=== PATIENT | female | born 1945 | race Caucasian/White ===

== ENCOUNTER 2021-03-24 20:30 | Inpatient (IN) | payer MEDICARE, BC ==
[2021-03-24] MEDS ORDERED: Acetaminophen 325 MG Tab PO ONE ×2 (20:52→21:01)
[2021-03-24 21:05] LABS: CHLORIDE,CL 101 mEq/L (98-106); SODIUM,NA 139 mEq/L (136-145)
--- NOTE | 2021-03-24 21:12 | EDM.PDOC ---
ED HPI GENERAL MEDICAL PROBLEM - General Chief Complaint: General Stated Complaint: COVID symtoms Time Seen by Provider: 03/24/21 20:45 Source of Information: Reports: Patient History Limitations: Reports: No Limitations, Respiratory Distress - History of Present Illness INITIAL COMMENTS - FREE TEXT/NARRATIVE: Veronica is a 75 yo female who presents to the ED via private vehicle with concerns of COVID 19. She states she became symptomatic with symptoms 9 days ago. States at onset she had cold like symptoms. Roughly three days ago symptoms progressively worsened. States she has been drinking tea but hasn't been able to eat anything for the last 24 hours. States she does have diarrhea and abdominal pain as well. States the cough is getting worse but she just thought she would get better. 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 She states she has been running a fever as well. Has been taking ibuprofen for the fever. Abdomen Pain Score (Numeric/FACES): 9 - Related Data Allergies Allergy/AdvReac Type Severity Reaction Status Date / Time No Known Allergies Allergy Verified 03/24/21 20:52 Home Meds: Home Meds Simvastatin 40 mg PO BEDTIME 03/24/21 [History] lisinopriL [Lisinopril] 10 mg PO BEDTIME 03/24/21 [History] Past Medical History Cardiovascular History: Reports: High Cholesterol, Hypertension Respiratory History: Reports: Other (See Below) Other Respiratory History: "ferrer's lung" Endocrine/Metabolic History: Reports: Other (See Below) Other Endocrine/Metabolic History: "borderline diabetes" - Past Surgical History HEENT Surgical History: Reports: Tonsillectomy GI Surgical History: Reports: Appendectomy, Cholecystectomy Female Surgical History: Reports: Section Social & Family History - Tobacco Use Tobacco Use Status *Q: Never Tobacco User - Alcohol Use Alcohol Use History: No ED ROS GENERAL - Review of Systems Review Of Systems: See Below Constitutional: Reports: Fever, Chills, Weakness, Fatigue, Decreased Appetite HEENT: Reports: Sinus Problem. Denies: Throat Pain, Throat Swelling Respiratory: Reports: Shortness of Breath, Wheezing, Cough Cardiovascular: Reports: No Symptoms GI/Abdominal: Reports: Abdominal Pain, Diarrhea. Denies: Bloody Stool, Vomiting Musculoskeletal: Reports: No Symptoms Skin: Reports: No Symptoms Neurological: Reports: No Symptoms Psychiatric: Reports: No Symptoms ED EXAM, GENERAL - Physical Exam Exam: See Below Exam Limited By: Respiratory Distress General Appearance: Alert, Mild Distress Ears: Normal External Exam, Hearing Grossly Normal Nose: Normal Inspection, No Blood Throat/Mouth: Normal Voice, No Airway Compromise Head: Atraumatic, Normocephalic Neck: Normal Inspection, Supple. No: Lymphadenopathy (L), Lymphadenopathy (R) Respiratory/Chest: Chest Non-Tender, Decreased Breath Sounds, Crackles, Wheezing. No: Accessory Muscle Use, Retractions, Splinting Cardiovascular: Regular Rate, Rhythm, No Murmur GI/Abdominal: Normal Bowel Sounds, Soft, No Organomegaly, No Mass Extremities: Normal Inspection, Pedal Edema (trace bilaterally) Neurological: Alert, Oriented, Normal Cognition Psychiatric: Normal Affect, Normal Mood Skin Exam: Dry, No Rash, Increased Warmth Course - Vital Signs Last Recorded V/S: Last Vital Signs Temp 102.7 F H 03/24/21 21:05 Pulse 88 03/24/21 21:05 Resp 20 03/24/21 21:05 BP 132/67 03/24/21 21:05 Pulse Ox 92 L 03/24/21 21:05 - Orders/Labs/Meds Orders: Active Orders 24 hr Category Date Time Status Chest 1V Frontal [CR] Stat Exams 03/24/21 21:02 Ordered C-REACTIVE PROTEIN [CHEM] Stat Lab 03/24/21 20:35 Received COMPREHENSIVE METABOLIC PN,CMP [CHEM] Stat Lab 03/24/21 20:35 Received CREATINE KINASE,CK [CHEM] Stat Lab 03/24/21 20:35 Received CULTURE BLOOD [BC] Stat Lab 03/24/21 21:05 Ordered CULTURE BLOOD [BC] Stat Lab 03/24/21 21:05 Ordered LACTATE DEHYDROGENASE,LDH [CHEM] Stat Lab 03/24/21 20:35 Received TROPONIN I HIGH SENSITIVITY [CHEM] Stat Lab 03/24/21 20:35 Received Blood Culture x2 Reflex Set [OM.PC] Stat Oth 03/24/21 21:05 Ordered Labs: Laboratory Tests 03/24/21 03/24/21 03/24/21 Range/Units 20:35 20:35 20:35 WBC 5.3 (4.0-11.0) 10^3/uL RBC 4.15 (4.00-5.50) x10^6/uL Hgb 12.7 (12.0-16.0) g/dL Hct 38.0 (37.0-47.0) % MCV 91.6 (83.0-97.0) fL MCH 30.6 (27.0-32.0) pg MCHC 33.4 (32.0-36.0) g/dL RDW Coeff of Mack 11.9 (11.0-15.0) % Plt Count 192 (150-400) 10^3/uL Immature Gran % (Auto) 0.2 (0.0-4.9) % Neut % (Auto) 69.0 (41-71) % Lymph % (Auto) 21.1 L (24-44) % [place] % (Auto) 9.5 (0-10) % Eos % (Auto) 0.0 (0-6) % Baso % (Auto) 0.2 (0-1) % Neut # (Auto) 3.64 (1.80-8.00) x10^3/uL Lymph # (Auto) 1.11 (0.60-5.00) 10^3/uL [place] # (Auto) 0.50 (0.00-1.50) 10^3/uL Eos # (Auto) 0.00 (0.00-1.50) 10^3/uL Baso # (Auto) 0.01 (0.00-0.50) 10^3/uL Immature Gran # (Auto) 0.01 (0.00-0.49) 10^3/uL PT 9.6 L (9.7-12.3) SEC INR 0.87 L (0.92-1.18) D-Dimer, Quantitative 1.21 H (0.00-0.50) Sodium 139 (136-145) mEq/L Potassium 3.6 (3.5-5.0) mEq/L Chloride 101 (98-106) mEq/L Carbon Dioxide 28 (21-32) mmol/L BUN 15 (7-18) mg/dL Creatinine 1.1 H (0.6-1.0) mg/dL Est Cr Clr Drug Dosing 36.02 mL/min Glucose 143 H (75-99) mg/dL Lactic Acid (0.4-2.0) mmol/L Calcium 8.5 (8.4-10.1) mg/dL Total Bilirubin 0.4 (0.0-1.0) mg/dL AST 34 (15-37) U/L ALT 34 (12-78) U/L Alkaline Phosphatase 72 (46-116) U/L Lactate Dehydrogenase 290 H (100-190) U/L Creatine Kinase 599 H (21-215) U/L Troponin I High Sens 8.6 (<=51) pg/mL C-Reactive Protein 4.1 H (0.2-0.8) mg/dL Total Protein 7.1 (6.4-8.2) g/dL Albumin 3.1 L (3.4-5.0) g/dL SARS CoV-2 RNA Rapid JAIME (NEGATIVE) 03/24/21 03/24/21 Range/Units 20:35 20:35 WBC (4.0-11.0) 10^3/uL RBC (4.00-5.50) x10^6/uL Hgb (12.0-16.0) g/dL Hct (37.0-47.0) % MCV (83.0-97.0) fL MCH (27.0-32.0) pg MCHC (32.0-36.0) g/dL RDW Coeff of Mack (11.0-15.0) % Plt Count (150-400) 10^3/uL Immature Gran % (Auto) (0.0-4.9) % Neut % (Auto) (41-71) % Lymph % (Auto) (24-44) % [place] % (Auto) (0-10) % Eos % (Auto) (0-6) % Baso % (Auto) (0-1) % Neut # (Auto) (1.80-8.00) x10^3/uL Lymph # (Auto) (0.60-5.00) 10^3/uL [place] # (Auto) (0.00-1.50) 10^3/uL Eos # (Auto) (0.00-1.50) 10^3/uL Baso # (Auto) (0.00-0.50) 10^3/uL Immature Gran # (Auto) (0.00-0.49) 10^3/uL PT (9.7-12.3) SEC INR (0.92-1.18) D-Dimer, Quantitative (0.00-0.50) Sodium (136-145) mEq/L Potassium (3.5-5.0) mEq/L Chloride (98-106) mEq/L Carbon Dioxide (21-32) mmol/L BUN (7-18) mg/dL Creatinine (0.6-1.0) mg/dL Est Cr Clr Drug Dosing mL/min Glucose (75-99) mg/dL Lactic Acid 1.4 (0.4-2.0) mmol/L Calcium (8.4-10.1) mg/dL Total Bilirubin (0.0-1.0) mg/dL AST (15-37) U/L ALT (12-78) U/L Alkaline Phosphatase (46-116) U/L Lactate Dehydrogenase (100-190) U/L Creatine Kinase (21-215) U/L Troponin I High Sens (<=51) pg/mL C-Reactive Protein (0.2-0.8) mg/dL Total Protein (6.4-8.2) g/dL Albumin (3.4-5.0) g/dL SARS CoV-2 RNA Rapid JAIME Positive H (NEGATIVE) Meds: Medications Discontinued Medications Generic Name Dose Route Start Last Admin Trade Name Karo PRN Reason Stop Dose Admin Acetaminophen 650 mg 03/24/21 20:52 03/24/21 21:00 Acetaminophen 325 Mg Tab PO 03/24/21 20:53 650 mg NOW ONE Administration Acetaminophen 325 mg 03/24/21 21:01 03/24/21 21:01 Acetaminophen 325 Mg Tab PO 03/24/21 21:02 325 mg NOW ONE Administration Departure - Departure Time of Disposition: 21:46 Disposition: Admitted As Inpatient 68 Clinical Impression: COVID-19, Hypoxia - Discharge Information Forms: ED Department Discharge Sepsis Event Note (ED) - Evaluation Sepsis Screening Result: No Definite Risk - Focused Exam Vital Signs: Vital Signs Temp Pulse Resp BP Pulse Ox 03/24/21 21:05 102.7 F H 88 20 132/67 92 L 03/24/21 20:30 102 F H 90 20 149/67 H 88 L - Problem List & Annotations (1) COVID-19 SNOMED Code(s): 224373309 Code(s): U07.1 - COVID-19 Status: Acute (2) Hypoxia SNOMED Code(s): 599448412 Code(s): R09.02 - HYPOXEMIA Status: Acute - My Orders Last 24 Hours: My Active Orders 03/24/21 20:35 C-REACTIVE PROTEIN [CHEM] Stat COMPREHENSIVE METABOLIC PN,CMP [CHEM] Stat CREATINE KINASE,CK [CHEM] Stat LACTATE DEHYDROGENASE,LDH [CHEM] Stat TROPONIN I HIGH SENSITIVITY [CHEM] Stat 03/24/21 21:02 Chest 1V Frontal [CR] Stat 03/24/21 21:05 CULTURE BLOOD [BC] Stat CULTURE BLOOD [BC] Stat Blood Culture x2 Reflex Set [OM.PC] Stat - Assessment/Plan Last 24 Hours: My Active Orders 03/24/21 20:35 C-REACTIVE PROTEIN [CHEM] Stat COMPREHENSIVE METABOLIC PN,CMP [CHEM] Stat CREATINE KINASE,CK [CHEM] Stat LACTATE DEHYDROGENASE,LDH [CHEM] Stat TROPONIN I HIGH SENSITIVITY [CHEM] Stat 03/24/21 21:02 Chest 1V Frontal [CR] Stat 03/24/21 21:05 CULTURE BLOOD [BC] Stat CULTURE BLOOD [BC] Stat Blood Culture x2 Reflex Set [OM.PC] Stat Plan: On presentation, patient's oxygen saturation was 88-89%. Veronica was put on oxygen via NC at 2 lpm, which improved oxygen saturation to 94-95%. Laboratory work showed normal lactic acid. LDH, CK and CRP to be slightly elevated. Will admit to acute care at this time. Discussed with Veronica and her daughter starting Remdesivir and dexamethasone at this time. Veronica verbalized understanding and in agreement with admission. Patient transferred to the floor in guarded but satisfactory condition.
[2021-03-24] MEDS ORDERED: Sodium Chloride 0.9% 1,000 ML IV SCH (22:34)
[2021-03-24] MEDS ORDERED: REMDESIVIR 200 MG in Sodium Chloride 0.9% 250 ML IV ONE (22:34)
[2021-03-24] MEDS ORDERED: Acetaminophen 325 MG Tab PO PRN (22:34)
[2021-03-24] MEDS: Dexamethasone 4 MG/ML SDV IVPUSH SCH (22:55)
[2021-03-24] MEDS: Enoxaparin 40 MG/0.4 ML Syringe SUBCUT SCH (22:56)
[2021-03-24] MEDS: Pantoprazole 40 MG Vial IVPUSH SCH (22:57)
[2021-03-24] MEDS: cefTRIAXone 1 GM Vial IVPUSH SCH (22:58)
[2021-03-25 07:37] LABS: CHLORIDE,CL 105 mEq/L (98-106); SODIUM,NA 141 mEq/L (136-145)
[2021-03-25] MEDS ORDERED: Dexamethasone 4 MG/ML SDV ONE (08:08)
[2021-03-25] MEDS: Acetaminophen 325 MG Tab PO PRN (08:10)
--- NOTE | 2021-03-25 08:33 | PCM.PN ---
- General Info Date of Service: 03/25/21 Admission Dx/Problem (Free Text): COVID 19 Hypoxia Subjective Update: Veronica is a 75 yo female who was admitted to the hospital last night d/t hypoxia secondary to COVID. Patient was on day 9 or 10 yesterday since symptom onset. She states she is gradually feeling better. Doesn't feel as if she has a fever this morning. States once she was able to get comfortable last night she slept well. Admits continues to not have much of an appetite. Denies any new onset of symptoms. Functional Status: Reports: Pain Controlled, Tolerating Diet, Urinating, Incentive Spirometry - Review of Systems General: Reports: Weakness, Fatigue. Denies: Fever HEENT: Reports: No Symptoms Pulmonary: Reports: Shortness of Breath, Cough, Wheezing Cardiovascular: Reports: No Symptoms Gastrointestinal: Denies: Abdominal Pain (chronic), Constipation, Diarrhea, Nausea, Vomiting Genitourinary: Reports: No Symptoms Musculoskeletal: Reports: No Symptoms Skin: Reports: No Symptoms Neurological: Reports: No Symptoms - Patient Data Vitals - Most Recent: Last Vital Signs Temp 97.5 F 03/25/21 04:00 Pulse 70 03/25/21 04:00 Resp 20 03/25/21 04:00 BP 133/62 03/25/21 04:00 Pulse Ox 96 03/25/21 04:00 Weight - Most Recent: 209 lb 4.8 oz Lab Results Last 24 Hours: Laboratory Results - last 24 hr 03/24/21 03/24/21 03/24/21 Range/Units 20:35 20:35 20:35 WBC 5.3 (4.0-11.0) 10^3/uL RBC 4.15 (4.00-5.50) x10^6/uL Hgb 12.7 (12.0-16.0) g/dL Hct 38.0 (37.0-47.0) % MCV 91.6 (83.0-97.0) fL MCH 30.6 (27.0-32.0) pg MCHC 33.4 (32.0-36.0) g/dL RDW Coeff of Mack 11.9 (11.0-15.0) % Plt Count 192 (150-400) 10^3/uL Immature Gran % (Auto) 0.2 (0.0-4.9) % Neut % (Auto) 69.0 (41-71) % Lymph % (Auto) 21.1 L (24-44) % [place] % (Auto) 9.5 (0-10) % Eos % (Auto) 0.0 (0-6) % Baso % (Auto) 0.2 (0-1) % Neut # (Auto) 3.64 (1.80-8.00) x10^3/uL Lymph # (Auto) 1.11 (0.60-5.00) 10^3/uL [place] # (Auto) 0.50 (0.00-1.50) 10^3/uL Eos # (Auto) 0.00 (0.00-1.50) 10^3/uL Baso # (Auto) 0.01 (0.00-0.50) 10^3/uL Immature Gran # (Auto) 0.01 (0.00-0.49) 10^3/uL PT 9.6 L (9.7-12.3) SEC INR 0.87 L (0.92-1.18) D-Dimer, Quantitative 1.21 H (0.00-0.50) Sodium 139 (136-145) mEq/L Potassium 3.6 (3.5-5.0) mEq/L Chloride 101 (98-106) mEq/L Carbon Dioxide 28 (21-32) mmol/L BUN 15 (7-18) mg/dL Creatinine 1.1 H (0.6-1.0) mg/dL Est Cr Clr Drug Dosing 36.02 mL/min Estimated GFR (MDRD) TNP Glucose 143 H (75-99) mg/dL Lactic Acid (0.4-2.0) mmol/L Calcium 8.5 (8.4-10.1) mg/dL Total Bilirubin 0.4 (0.0-1.0) mg/dL Direct Bilirubin (0.0-0.3) mg/dL AST 34 (15-37) U/L ALT 34 (12-78) U/L Alkaline Phosphatase 72 (46-116) U/L Lactate Dehydrogenase 290 H (100-190) U/L Creatine Kinase 599 H (21-215) U/L Troponin I High Sens 8.6 (<=51) pg/mL C-Reactive Protein 4.1 H (0.2-0.8) mg/dL Total Protein 7.1 (6.4-8.2) g/dL Albumin 3.1 L (3.4-5.0) g/dL Urine Color (YELLOW) Urine Appearance (CLEAR) Urine pH (4.5-8.0) Ur Specific [place] (1.003-1.020) Urine Protein (NEGATIVE) mg/dL Urine Glucose (UA) (NEGATIVE) mg/dL Urine Ketones (NEGATIVE) mg/dL Urine Occult Blood (NEGATIVE) Urine Nitrite (NEGATIVE) Urine Bilirubin (NEGATIVE) Urine Urobilinogen (0.2-1.0) EU/dL Ur Leukocyte Esterase (NEGATIVE) Urine RBC (0-5) /HPF Urine WBC (0-5) /HPF Ur Epithelial Cells (NOT SEEN) /HPF Urine Bacteria (NOT SEEN) /HPF Urine Mucus (NOT SEEN) /HPF SARS CoV-2 RNA Rapid JAIME (NEGATIVE) 03/24/21 03/24/21 03/24/21 Range/Units 20:35 20:35 21:50 WBC (4.0-11.0) 10^3/uL RBC (4.00-5.50) x10^6/uL Hgb (12.0-16.0) g/dL Hct (37.0-47.0) % MCV (83.0-97.0) fL MCH (27.0-32.0) pg MCHC (32.0-36.0) g/dL RDW Coeff of Mack (11.0-15.0) % Plt Count (150-400) 10^3/uL Immature Gran % (Auto) (0.0-4.9) % Neut % (Auto) (41-71) % Lymph % (Auto) (24-44) % [place] % (Auto) (0-10) % Eos % (Auto) (0-6) % Baso % (Auto) (0-1) % Neut # (Auto) (1.80-8.00) x10^3/uL Lymph # (Auto) (0.60-5.00) 10^3/uL [place] # (Auto) (0.00-1.50) 10^3/uL Eos # (Auto) (0.00-1.50) 10^3/uL Baso # (Auto) (0.00-0.50) 10^3/uL Immature Gran # (Auto) (0.00-0.49) 10^3/uL PT (9.7-12.3) SEC INR (0.92-1.18) D-Dimer, Quantitative (0.00-0.50) Sodium (136-145) mEq/L Potassium (3.5-5.0) mEq/L Chloride (98-106) mEq/L Carbon Dioxide (21-32) mmol/L BUN (7-18) mg/dL Creatinine (0.6-1.0) mg/dL Est Cr Clr Drug Dosing mL/min Estimated GFR (MDRD) Glucose (75-99) mg/dL Lactic Acid 1.4 (0.4-2.0) mmol/L Calcium (8.4-10.1) mg/dL Total Bilirubin (0.0-1.0) mg/dL Direct Bilirubin (0.0-0.3) mg/dL AST (15-37) U/L ALT (12-78) U/L Alkaline Phosphatase (46-116) U/L Lactate Dehydrogenase (100-190) U/L Creatine Kinase (21-215) U/L Troponin I High Sens (<=51) pg/mL C-Reactive Protein (0.2-0.8) mg/dL Total Protein (6.4-8.2) g/dL Albumin (3.4-5.0) g/dL Urine Color Dark yellow (YELLOW) Urine Appearance Cloudy (CLEAR) Urine pH 5.0 (4.5-8.0) Ur Specific [place] 1.025 H (1.003-1.020) Urine Protein 100 H (NEGATIVE) mg/dL Urine Glucose (UA) Negative (NEGATIVE) mg/dL Urine Ketones 15 H (NEGATIVE) mg/dL Urine Occult Blood Trace-intact H (NEGATIVE) Urine Nitrite Negative (NEGATIVE) Urine Bilirubin Small H (NEGATIVE) Urine Urobilinogen 1.0 (0.2-1.0) EU/dL Ur Leukocyte Esterase Trace H (NEGATIVE) Urine RBC 0-5 (0-5) /HPF Urine WBC 5-10 H (0-5) /HPF Ur Epithelial Cells Many H (NOT SEEN) /HPF Urine Bacteria Few H (NOT SEEN) /HPF Urine Mucus Moderate H (NOT SEEN) /HPF SARS CoV-2 RNA Rapid JAIME Positive H (NEGATIVE) 03/25/21 03/25/21 Range/Units 06:55 06:55 WBC 2.7 L (4.0-11.0) 10^3/uL RBC 4.14 (4.00-5.50) x10^6/uL Hgb 12.4 (12.0-16.0) g/dL Hct 38.5 (37.0-47.0) % MCV 93.0 (83.0-97.0) fL MCH 30.0 (27.0-32.0) pg MCHC 32.2 (32.0-36.0) g/dL RDW Coeff of Mack 11.9 (11.0-15.0) % Plt Count 200 (150-400) 10^3/uL Immature Gran % (Auto) 0.4 (0.0-4.9) % Neut % (Auto) 53.6 (41-71) % Lymph % (Auto) 41.1 (24-44) % [place] % (Auto) 4.5 (0-10) % Eos % (Auto) 0.0 (0-6) % Baso % (Auto) 0.4 (0-1) % Neut # (Auto) 1.42 L (1.80-8.00) x10^3/uL Lymph # (Auto) 1.09 (0.60-5.00) 10^3/uL [place] # (Auto) 0.12 (0.00-1.50) 10^3/uL Eos # (Auto) 0.00 (0.00-1.50) 10^3/uL Baso # (Auto) 0.01 (0.00-0.50) 10^3/uL Immature Gran # (Auto) 0.01 (0.00-0.49) 10^3/uL PT (9.7-12.3) SEC INR (0.92-1.18) D-Dimer, Quantitative (0.00-0.50) Sodium 141 (136-145) mEq/L Potassium 4.7 D (3.5-5.0) mEq/L Chloride 105 (98-106) mEq/L Carbon Dioxide 31 (21-32) mmol/L BUN 11 (7-18) mg/dL Creatinine 0.9 (0.6-1.0) mg/dL Est Cr Clr Drug Dosing 44.03 mL/min Estimated GFR (MDRD) > 60 Glucose 176 H (75-99) mg/dL Lactic Acid (0.4-2.0) mmol/L Calcium 8.0 L (8.4-10.1) mg/dL Total Bilirubin 0.3 (0.0-1.0) mg/dL Direct Bilirubin 0.1 (0.0-0.3) mg/dL AST 34 (15-37) U/L ALT 32 (12-78) U/L Alkaline Phosphatase 67 (46-116) U/L Lactate Dehydrogenase 291 H (100-190) U/L Creatine Kinase 552 H (21-215) U/L Troponin I High Sens (<=51) pg/mL C-Reactive Protein 5.0 H (0.2-0.8) mg/dL Total Protein 6.7 (6.4-8.2) g/dL Albumin 2.8 L (3.4-5.0) g/dL Urine Color (YELLOW) Urine Appearance (CLEAR) Urine pH (4.5-8.0) Ur Specific [place] (1.003-1.020) Urine Protein (NEGATIVE) mg/dL Urine Glucose (UA) (NEGATIVE) mg/dL Urine Ketones (NEGATIVE) mg/dL Urine Occult Blood (NEGATIVE) Urine Nitrite (NEGATIVE) Urine Bilirubin (NEGATIVE) Urine Urobilinogen (0.2-1.0) EU/dL Ur Leukocyte Esterase (NEGATIVE) Urine RBC (0-5) /HPF Urine WBC (0-5) /HPF Ur Epithelial Cells (NOT SEEN) /HPF Urine Bacteria (NOT SEEN) /HPF Urine Mucus (NOT SEEN) /HPF SARS CoV-2 RNA Rapid JAIME (NEGATIVE) Med Orders - Current: Current Medications Acetaminophen (Acetaminophen 325 Mg Tab) 650 mg PO Q4H PRN PRN Reason: Pain (Mild 1-3)/fever Ceftriaxone Sodium (Ceftriaxone 1 Gm Vial) 1 gm IVPUSH Q24H [facility] Last Admin: 03/24/21 22:58 Dose: 1 gm Documented by: Dexamethasone (Dexamethasone 4 Mg/Ml Sdv) 6 mg IVPUSH DAILY TIM Stop: 04/02/21 08:01 Last Admin: 03/24/21 22:55 Dose: 6 mg Documented by: Enoxaparin Sodium (Enoxaparin 40 Mg/0.4 Ml Syringe) 40 mg SUBCUT BID [facility] Last Admin: 03/24/21 22:56 Dose: 40 mg Documented by: Sodium Chloride (Normal Saline) 1,000 mls @ 100 mls/hr IV ASDIRECTED [facility] Last Admin: 03/24/21 23:01 Dose: 100 mls/hr Documented by: Remdesivir 100 mg/ Sodium (Chloride) 100 mls @ 100 mls/hr IV Q24H [facility] Stop: 03/28/21 18:59 Lisinopril (Lisinopril 10 Mg Tab) 10 mg PO BEDTIME TIM Pantoprazole Sodium (Pantoprazole 40 Mg Vial) 40 mg IVPUSH BEDTIME [facility] Last Admin: 03/24/21 22:57 Dose: 40 mg Documented by: Simvastatin (Simvastatin 40 Mg Tab) 40 mg PO BEDTIME TIM Discontinued Medications Acetaminophen (Acetaminophen 325 Mg Tab) 650 mg PO NOW ONE Stop: 03/24/21 20:53 Last Admin: 03/24/21 21:00 Dose: 650 mg Documented by: Acetaminophen (Acetaminophen 325 Mg Tab) 325 mg PO NOW ONE Stop: 03/24/21 21:02 Last Admin: 03/24/21 21:01 Dose: 325 mg Documented by: Acetaminophen (Acetaminophen 325 Mg Tab) 650 mg PO Q4H PRN PRN Reason: Fever Greater Than 101 Dexamethasone (Dexamethasone 4 Mg/Ml Sdv) Confirm Administered Dose 4 mg .ROUTE .STK-MED ONE Stop: 03/25/21 08:09 Remdesivir 200 mg/ Sodium (Chloride) 250 mls @ 250 mls/hr IV ONETIME ONE Stop: 03/24/21 22:35 Last Admin: 03/24/21 22:59 Dose: 250 mls/hr Documented by: - Exam Quality Assessment: Supplemental Oxygen General: Alert, Oriented, Cooperative, No Acute Distress Neck: Supple Lungs: Decreased Breath Sounds, Crackles, Wheezing. No: Stridor Cardiovascular: Regular Rate, Regular Rhythm, No Murmurs GI/Abdominal Exam: Normal Bowel Sounds, Soft, Non-Tender, No Distention Extremities: Normal Inspection, Non-Tender, Pedal Edema Skin: Warm, Dry, Intact Neurological: No New Focal Deficit Psy/Mental Status: Alert, Normal Affect, Normal Mood - Patient Data Lab Results Last 24 hrs: Laboratory Results - last 24 hr 03/24/21 03/24/21 03/24/21 Range/Units 20:35 20:35 20:35 WBC 5.3 (4.0-11.0) 10^3/uL RBC 4.15 (4.00-5.50) x10^6/uL Hgb 12.7 (12.0-16.0) g/dL Hct 38.0 (37.0-47.0) % MCV 91.6 (83.0-97.0) fL MCH 30.6 (27.0-32.0) pg MCHC 33.4 (32.0-36.0) g/dL RDW Coeff of Mack 11.9 (11.0-15.0) % Plt Count 192 (150-400) 10^3/uL Immature Gran % (Auto) 0.2 (0.0-4.9) % Neut % (Auto) 69.0 (41-71) % Lymph % (Auto) 21.1 L (24-44) % [place] % (Auto) 9.5 (0-10) % Eos % (Auto) 0.0 (0-6) % Baso % (Auto) 0.2 (0-1) % Neut # (Auto) 3.64 (1.80-8.00) x10^3/uL Lymph # (Auto) 1.11 (0.60-5.00) 10^3/uL [place] # (Auto) 0.50 (0.00-1.50) 10^3/uL Eos # (Auto) 0.00 (0.00-1.50) 10^3/uL Baso # (Auto) 0.01 (0.00-0.50) 10^3/uL Immature Gran # (Auto) 0.01 (0.00-0.49) 10^3/uL PT 9.6 L (9.7-12.3) SEC INR 0.87 L (0.92-1.18) D-Dimer, Quantitative 1.21 H (0.00-0.50) Sodium 139 (136-145) mEq/L Potassium 3.6 (3.5-5.0) mEq/L Chloride 101 (98-106) mEq/L Carbon Dioxide 28 (21-32) mmol/L BUN 15 (7-18) mg/dL Creatinine 1.1 H (0.6-1.0) mg/dL Est Cr Clr Drug Dosing 36.02 mL/min Estimated GFR (MDRD) TNP Glucose 143 H (75-99) mg/dL Lactic Acid (0.4-2.0) mmol/L Calcium 8.5 (8.4-10.1) mg/dL Total Bilirubin 0.4 (0.0-1.0) mg/dL Direct Bilirubin (0.0-0.3) mg/dL AST 34 (15-37) U/L ALT 34 (12-78) U/L Alkaline Phosphatase 72 (46-116) U/L Lactate Dehydrogenase 290 H (100-190) U/L Creatine Kinase 599 H (21-215) U/L Troponin I High Sens 8.6 (<=51) pg/mL C-Reactive Protein 4.1 H (0.2-0.8) mg/dL Total Protein 7.1 (6.4-8.2) g/dL Albumin 3.1 L (3.4-5.0) g/dL Urine Color (YELLOW) Urine Appearance (CLEAR) Urine pH (4.5-8.0) Ur Specific [place] (1.003-1.020) Urine Protein (NEGATIVE) mg/dL Urine Glucose (UA) (NEGATIVE) mg/dL Urine Ketones (NEGATIVE) mg/dL Urine Occult Blood (NEGATIVE) Urine Nitrite (NEGATIVE) Urine Bilirubin (NEGATIVE) Urine Urobilinogen (0.2-1.0) EU/dL Ur Leukocyte Esterase (NEGATIVE) Urine RBC (0-5) /HPF Urine WBC (0-5) /HPF Ur Epithelial Cells (NOT SEEN) /HPF Urine Bacteria (NOT SEEN) /HPF Urine Mucus (NOT SEEN) /HPF SARS CoV-2 RNA Rapid JAIME (NEGATIVE) 03/24/21 03/24/21 03/24/21 Range/Units 20:35 20:35 21:50 WBC (4.0-11.0) 10^3/uL RBC (4.00-5.50) x10^6/uL Hgb (12.0-16.0) g/dL Hct (37.0-47.0) % MCV (83.0-97.0) fL MCH (27.0-32.0) pg MCHC (32.0-36.0) g/dL RDW Coeff of Mack (11.0-15.0) % Plt Count (150-400) 10^3/uL Immature Gran % (Auto) (0.0-4.9) % Neut % (Auto) (41-71) % Lymph % (Auto) (24-44) % [place] % (Auto) (0-10) % Eos % (Auto) (0-6) % Baso % (Auto) (0-1) % Neut # (Auto) (1.80-8.00) x10^3/uL Lymph # (Auto) (0.60-5.00) 10^3/uL [place] # (Auto) (0.00-1.50) 10^3/uL Eos # (Auto) (0.00-1.50) 10^3/uL Baso # (Auto) (0.00-0.50) 10^3/uL Immature Gran # (Auto) (0.00-0.49) 10^3/uL PT (9.7-12.3) SEC INR (0.92-1.18) D-Dimer, Quantitative (0.00-0.50) Sodium (136-145) mEq/L Potassium (3.5-5.0) mEq/L Chloride (98-106) mEq/L Carbon Dioxide (21-32) mmol/L BUN (7-18) mg/dL Creatinine (0.6-1.0) mg/dL Est Cr Clr Drug Dosing mL/min Estimated GFR (MDRD) Glucose (75-99) mg/dL Lactic Acid 1.4 (0.4-2.0) mmol/L Calcium (8.4-10.1) mg/dL Total Bilirubin (0.0-1.0) mg/dL Direct Bilirubin (0.0-0.3) mg/dL AST (15-37) U/L ALT (12-78) U/L Alkaline Phosphatase (46-116) U/L Lactate Dehydrogenase (100-190) U/L Creatine Kinase (21-215) U/L Troponin I High Sens (<=51) pg/mL C-Reactive Protein (0.2-0.8) mg/dL Total Protein (6.4-8.2) g/dL Albumin (3.4-5.0) g/dL Urine Color Dark yellow (YELLOW) Urine Appearance Cloudy (CLEAR) Urine pH 5.0 (4.5-8.0) Ur Specific [place] 1.025 H (1.003-1.020) Urine Protein 100 H (NEGATIVE) mg/dL Urine Glucose (UA) Negative (NEGATIVE) mg/dL Urine Ketones 15 H (NEGATIVE) mg/dL Urine Occult Blood Trace-intact H (NEGATIVE) Urine Nitrite Negative (NEGATIVE) Urine Bilirubin Small H (NEGATIVE) Urine Urobilinogen 1.0 (0.2-1.0) EU/dL Ur Leukocyte Esterase Trace H (NEGATIVE) Urine RBC 0-5 (0-5) /HPF Urine WBC 5-10 H (0-5) /HPF Ur Epithelial Cells Many H (NOT SEEN) /HPF Urine Bacteria Few H (NOT SEEN) /HPF Urine Mucus Moderate H (NOT SEEN) /HPF SARS CoV-2 RNA Rapid JAIME Positive H (NEGATIVE) 03/25/21 03/25/21 Range/Units 06:55 06:55 WBC 2.7 L (4.0-11.0) 10^3/uL RBC 4.14 (4.00-5.50) x10^6/uL Hgb 12.4 (12.0-16.0) g/dL Hct 38.5 (37.0-47.0) % MCV 93.0 (83.0-97.0) fL MCH 30.0 (27.0-32.0) pg MCHC 32.2 (32.0-36.0) g/dL RDW Coeff of Mack 11.9 (11.0-15.0) % Plt Count 200 (150-400) 10^3/uL Immature Gran % (Auto) 0.4 (0.0-4.9) % Neut % (Auto) 53.6 (41-71) % Lymph % (Auto) 41.1 (24-44) % [place] % (Auto) 4.5 (0-10) % Eos % (Auto) 0.0 (0-6) % Baso % (Auto) 0.4 (0-1) % Neut # (Auto) 1.42 L (1.80-8.00) x10^3/uL Lymph # (Auto) 1.09 (0.60-5.00) 10^3/uL [place] # (Auto) 0.12 (0.00-1.50) 10^3/uL Eos # (Auto) 0.00 (0.00-1.50) 10^3/uL Baso # (Auto) 0.01 (0.00-0.50) 10^3/uL Immature Gran # (Auto) 0.01 (0.00-0.49) 10^3/uL PT (9.7-12.3) SEC INR (0.92-1.18) D-Dimer, Quantitative (0.00-0.50) Sodium 141 (136-145) mEq/L Potassium 4.7 D (3.5-5.0) mEq/L Chloride 105 (98-106) mEq/L Carbon Dioxide 31 (21-32) mmol/L BUN 11 (7-18) mg/dL Creatinine 0.9 (0.6-1.0) mg/dL Est Cr Clr Drug Dosing 44.03 mL/min Estimated GFR (MDRD) > 60 Glucose 176 H (75-99) mg/dL Lactic Acid (0.4-2.0) mmol/L Calcium 8.0 L (8.4-10.1) mg/dL Total Bilirubin 0.3 (0.0-1.0) mg/dL Direct Bilirubin 0.1 (0.0-0.3) mg/dL AST 34 (15-37) U/L ALT 32 (12-78) U/L Alkaline Phosphatase 67 (46-116) U/L Lactate Dehydrogenase 291 H (100-190) U/L Creatine Kinase 552 H (21-215) U/L Troponin I High Sens (<=51) pg/mL C-Reactive Protein 5.0 H (0.2-0.8) mg/dL Total Protein 6.7 (6.4-8.2) g/dL Albumin 2.8 L (3.4-5.0) g/dL Urine Color (YELLOW) Urine Appearance (CLEAR) Urine pH (4.5-8.0) Ur Specific [place] (1.003-1.020) Urine Protein (NEGATIVE) mg/dL Urine Glucose (UA) (NEGATIVE) mg/dL Urine Ketones (NEGATIVE) mg/dL Urine Occult Blood (NEGATIVE) Urine Nitrite (NEGATIVE) Urine Bilirubin (NEGATIVE) Urine Urobilinogen (0.2-1.0) EU/dL Ur Leukocyte Esterase (NEGATIVE) Urine RBC (0-5) /HPF Urine WBC (0-5) /HPF Ur Epithelial Cells (NOT SEEN) /HPF Urine Bacteria (NOT SEEN) /HPF Urine Mucus (NOT SEEN) /HPF SARS CoV-2 RNA Rapid JAIME (NEGATIVE) Result Diagrams: 03/25/21 06:55 03/25/21 06:55 Sepsis Event Note - Evaluation Sepsis Screening Result: No Definite Risk - Focused Exam Vital Signs: Vital Signs Temp Temp Pulse Resp BP Pulse Ox 03/25/21 04:00 97.5 F 70 20 133/62 96 03/25/21 00:00 100.1 F 77 20 124/56 L 95 03/24/21 22:00 102.2 F H 81 20 114/87 96 03/24/21 21:31 102.2 F H 03/24/21 21:30 102.2 F H 03/24/21 21:05 102.7 F H 88 20 132/67 92 L 03/24/21 20:30 102 F H 90 20 149/67 H 88 L - Problem List & Annotations (1) COVID-19 SNOMED Code(s): 857899128 Code(s): U07.1 - COVID-19 Status: Acute Current Visit: No (2) Hypoxia SNOMED Code(s): 306004274 Code(s): R09.02 - HYPOXEMIA Status: Acute Current Visit: No - Problem List Review Problem List Initiated/Reviewed/Updated: Yes - My Orders Last 24 Hours: My Active Orders 03/24/21 Breakfast 2 Gram Sodium Diet [DIET] 03/24/21 21:02 Chest 1V Frontal [CR] Stat 03/24/21 21:05 Blood Culture x2 Reflex Set [OM.PC] Stat 03/24/21 21:15 CULTURE BLOOD [BC] Stat 03/24/21 21:20 CULTURE BLOOD [BC] Stat 03/24/21 21:51 Resuscitation Status Routine 03/24/21 22:34 Acetaminophen [TylenoL] 650 mg PO Q4H PRN Enoxaparin [Lovenox] 40 mg SUBCUT BID Pantoprazole [ProTONIX IV] 40 mg IVPUSH BEDTIME Sodium Chloride 0.9% [Normal Saline] 1,000 ml IV ASDIRECTED dexAMETHasone [Decadron] 6 mg IVPUSH DAILY 03/24/21 22:34 Patient Status [ADT] Routine Cardiac Monitoring [RC] 0800,1999 Nurse Communication: Isolation [RC] ASDIRECTED Oxygen Therapy [RC] 2355 RT Incentive Spirometry [RC] ASDIRECTED Up ad Cris [RC] ASDIRECTED Vital Signs [RC] 0800,1200,1600,2000,0000,0400 Isolation [COMM] Stat 03/24/21 22:45 cefTRIAXone [Rocephin] 1 gm IVPUSH Q24H 03/25/21 18:00 Remdesivir 100 mg Sodium Chloride 0.9% [Normal Saline AdvBag] 100 ml IV Q24H 03/25/21 20:00 Simvastatin [Zocor] 40 mg PO BEDTIME lisinopriL [Prinivil] 10 mg PO BEDTIME 03/26/21 05:11 C-REACTIVE PROTEIN [CHEM] AM CBC WITH AUTO DIFF [HEME] AM CREATINE KINASE,CK [CHEM] AM 03/26/21 22:34 BILIRUBIN DIRECT [CHEM] DAILY COMPREHENSIVE METABOLIC PN,CMP [CHEM] DAILY 03/27/21 05:11 C-REACTIVE PROTEIN [CHEM] AM CBC WITH AUTO DIFF [HEME] AM CREATINE KINASE,CK [CHEM] AM 03/27/21 22:34 BILIRUBIN DIRECT [CHEM] DAILY COMPREHENSIVE METABOLIC PN,CMP [CHEM] DAILY 03/28/21 22:34 BILIRUBIN DIRECT [CHEM] DAILY COMPREHENSIVE METABOLIC PN,CMP [CHEM] DAILY - Plan Plan:: 03/25/2021 Patient overall had an uneventful night. Vital signs show her to be afebrile this morning. Laboratory work was stable this morning as well. Will continue to closely monitor. Will start promethazine with codeine for her cough as well. Will d/c IV fluids today.
[2021-03-25] MEDS: Enoxaparin 40 MG/0.4 ML Syringe SUBCUT SCH ×2 (09:11→19:48)
[2021-03-25] MEDS: Codeine/Promethazine 10-6.25 MG/5 ML Syrup 5 ML UD Cup PO PRN ×2 (09:12→17:19)
[2021-03-25] MEDS: Dexamethasone 4 MG/ML SDV IVPUSH SCH ×2 (10:50→19:49)
[2021-03-25] MEDS: REMDESIVIR 100 MG in Sodium Chloride 0.9% 100 ML IV SCH (17:19)
[2021-03-25] MEDS: Simvastatin 40 MG Tab PO SCH (19:48)
[2021-03-25] MEDS: Pantoprazole 40 MG Vial IVPUSH SCH (19:49)
[2021-03-25] MEDS: Lisinopril 10 MG Tab PO SCH (19:49)
[2021-03-25] MEDS: cefTRIAXone 1 GM Vial IVPUSH SCH (23:00)
[2021-03-26 07:17] LABS: CHLORIDE,CL 106 mEq/L (98-106); SODIUM,NA 140 mEq/L (136-145)
[2021-03-26] MEDS: Enoxaparin 40 MG/0.4 ML Syringe SUBCUT SCH ×2 (07:35→21:12)
[2021-03-26] MEDS: Codeine/Promethazine 10-6.25 MG/5 ML Syrup 5 ML UD Cup PO PRN ×2 (07:52→21:00)
--- NOTE | 2021-03-26 10:24 | PCM.PN ---
- General Info Date of Service: 03/26/21 Admission Dx/Problem (Free Text): COVID 19 Hypoxia Subjective Update: Veronica is a 75 yo female who was admitted to the hospital last night d/t hypoxia secondary to COVID. Patient was on day 9 or 10 yesterday since symptom onset. She states she is gradually feeling better. Doesn't feel as if she has a fever this morning. States once she was able to get comfortable last night she slept well. Admits continues to not have much of an appetite. Denies any new onset of symptoms. 03/26/2021 Veronica states this morning she continues to improve. State she continues to have a horrible cough, which is worse in the morning. She denies feeling short of breath as prior. States her appetite is much better and eating more than she should be. States she started drinking a lot of water as well. Denies any new onset of symptoms. Functional Status: Reports: Tolerating Diet, Ambulating, Urinating, Incentive Spirometry. Denies: New Symptoms - Review of Systems General: Denies: Fever, Appetite HEENT: Reports: No Symptoms Pulmonary: Reports: Shortness of Breath, Cough, Sputum Cardiovascular: Denies: Chest Pain, Edema Gastrointestinal: Denies: Abdominal Pain, Diarrhea, Nausea, Vomiting Genitourinary: Reports: No Symptoms Musculoskeletal: Reports: No Symptoms Neurological: Reports: No Symptoms - Patient Data Vitals - Most Recent: Last Vital Signs Temp 97.8 F 03/26/21 08:00 Pulse 75 03/26/21 08:00 Resp 20 03/26/21 08:00 BP 125/58 L 03/26/21 08:00 Pulse Ox 94 L 03/26/21 08:00 Weight - Most Recent: 209 lb 4.8 oz Lab Results Last 24 Hours: Laboratory Results - last 24 hr 03/26/21 03/26/21 03/26/21 Range/Units 06:55 06:55 06:55 WBC 4.7 (4.0-11.0) 10^3/uL RBC 4.02 (4.00-5.50) x10^6/uL Hgb 12.2 (12.0-16.0) g/dL Hct 37.2 (37.0-47.0) % MCV 92.5 (83.0-97.0) fL MCH 30.3 (27.0-32.0) pg MCHC 32.8 (32.0-36.0) g/dL RDW Coeff of Mack 11.8 (11.0-15.0) % Plt Count 226 (150-400) 10^3/uL Immature Gran % (Auto) 0.2 (0.0-4.9) % Neut % (Auto) 62.5 (41-71) % Lymph % (Auto) 29.0 (24-44) % [place] % (Auto) 8.1 (0-10) % Eos % (Auto) 0.0 (0-6) % Baso % (Auto) 0.2 (0-1) % Neut # (Auto) 2.95 (1.80-8.00) x10^3/uL Lymph # (Auto) 1.37 (0.60-5.00) 10^3/uL [place] # (Auto) 0.38 (0.00-1.50) 10^3/uL Eos # (Auto) 0.00 (0.00-1.50) 10^3/uL Baso # (Auto) 0.01 (0.00-0.50) 10^3/uL Immature Gran # (Auto) 0.01 (0.00-0.49) 10^3/uL Sodium 140 (136-145) mEq/L Potassium 4.2 (3.5-5.0) mEq/L Chloride 106 (98-106) mEq/L Carbon Dioxide 30 (21-32) mmol/L BUN 14 (7-18) mg/dL Creatinine 0.9 (0.6-1.0) mg/dL Est Cr Clr Drug Dosing 44.03 mL/min Estimated GFR (MDRD) > 60 (>=60) mL/min Glucose 166 H (75-99) mg/dL Calcium 8.0 L (8.4-10.1) mg/dL Total Bilirubin 0.2 (0.0-1.0) mg/dL Direct Bilirubin 0.1 (0.0-0.3) mg/dL AST 25 (15-37) U/L ALT 29 (12-78) U/L Alkaline Phosphatase 60 (46-116) U/L Creatine Kinase 419 H (21-215) U/L C-Reactive Protein 2.8 H (0.2-0.8) mg/dL Total Protein 6.3 L (6.4-8.2) g/dL Albumin 2.6 L (3.4-5.0) g/dL Jhoan Results Last 24 Hours: Microbiology 03/25/21 11:30 Urine Culture - Preliminary Urine, Voided NO GROWTH AFTER 1 DAY 03/24/21 21:20 Aerobic Blood Culture - Preliminary Blood - Venous - Lab Draw NO GROWTH AFTER 1 DAY Anaerobic Blood Culture - Preliminary NO GROWTH AFTER 1 DAY 03/24/21 21:15 Aerobic Blood Culture - Preliminary Blood - Venous NO GROWTH AFTER 1 DAY Anaerobic Blood Culture - Preliminary NO GROWTH AFTER 1 DAY Med Orders - Current: Current Medications Acetaminophen (Acetaminophen 325 Mg Tab) 650 mg PO Q4H PRN PRN Reason: Pain (Mild 1-3)/fever Last Admin: 03/25/21 08:10 Dose: 650 mg Documented by: Ceftriaxone Sodium (Ceftriaxone 1 Gm Vial) 1 gm IVPUSH Q24H [facility] Dexamethasone (Dexamethasone 4 Mg/Ml Sdv) 6 mg IVPUSH BEDTIME TIM Stop: 04/02/21 20:01 Last Admin: 03/25/21 19:49 Dose: 6 mg Documented by: Enoxaparin Sodium (Enoxaparin 40 Mg/0.4 Ml Syringe) 40 mg SUBCUT BID [facility] Last Admin: 03/26/21 07:35 Dose: 40 mg Documented by: Remdesivir 100 mg/ Sodium (Chloride) 100 mls @ 100 mls/hr IV Q24H TIM Stop: 03/28/21 18:59 Last Admin: 03/25/21 17:19 Dose: 100 mls/hr Documented by: Lisinopril (Lisinopril 10 Mg Tab) 10 mg PO BEDTIME TIM Last Admin: 03/25/21 19:49 Dose: 10 mg Documented by: Pantoprazole Sodium (Pantoprazole 40 Mg Vial) 40 mg IVPUSH BEDTIME TIM Last Admin: 03/25/21 19:49 Dose: 40 mg Documented by: Promethazine HCl/Codeine (Codeine/Promethazine 10-6.25 Mg/5 Ml Syrup 5 Ml Ud Cup) 10 ml PO Q6H PRN PRN Reason: Cough Last Admin: 03/26/21 07:52 Dose: 10 ml Documented by: Simvastatin (Simvastatin 40 Mg Tab) 40 mg PO BEDTIME TIM Last Admin: 03/25/21 19:48 Dose: 40 mg Documented by: Discontinued Medications Acetaminophen (Acetaminophen 325 Mg Tab) 650 mg PO NOW ONE Stop: 03/24/21 20:53 Last Admin: 03/24/21 21:00 Dose: 650 mg Documented by: Acetaminophen (Acetaminophen 325 Mg Tab) 325 mg PO NOW ONE Stop: 03/24/21 21:02 Last Admin: 03/24/21 21:01 Dose: 325 mg Documented by: Acetaminophen (Acetaminophen 325 Mg Tab) 650 mg PO Q4H PRN PRN Reason: Fever Greater Than 101 Ceftriaxone Sodium (Ceftriaxone 1 Gm Vial) 1 gm IVPUSH Q24H [facility] Last Admin: 03/25/21 23:00 Dose: 1 gm Documented by: Dexamethasone (Dexamethasone 4 Mg/Ml Sdv) 6 mg IVPUSH DAILY TIM Stop: 04/02/21 08:01 Last Admin: 03/25/21 10:50 Dose: Not Given Documented by: Dexamethasone (Dexamethasone 4 Mg/Ml Sdv) Confirm Administered Dose 4 mg .ROUTE .STK-MED ONE Stop: 03/25/21 08:09 Last Admin: 03/25/21 09:12 Dose: Not Given Documented by: Sodium Chloride (Normal Saline) 1,000 mls @ 100 mls/hr IV ASDIRECTED [facility] Last Admin: 03/24/21 23:01 Dose: 100 mls/hr Documented by: Remdesivir 200 mg/ Sodium (Chloride) 250 mls @ 250 mls/hr IV ONETIME ONE Stop: 03/24/21 22:35 Last Admin: 03/24/21 22:59 Dose: 250 mls/hr Documented by: - Exam Quality Assessment: Supplemental Oxygen General: Alert, Oriented, Cooperative, No Acute Distress Neck: Supple Lungs: Decreased Breath Sounds, Crackles (bilateral bases). No: Wheezing Cardiovascular: Regular Rate, Regular Rhythm, No Murmurs GI/Abdominal Exam: Normal Bowel Sounds, Soft, No Organomegaly, No Distention Extremities: Normal Inspection, Non-Tender, No Pedal Edema Skin: Warm, Dry, Intact Psy/Mental Status: Alert, Normal Affect, Normal Mood - Patient Data Lab Results Last 24 hrs: Laboratory Results - last 24 hr 03/26/21 03/26/21 03/26/21 Range/Units 06:55 06:55 06:55 WBC 4.7 (4.0-11.0) 10^3/uL RBC 4.02 (4.00-5.50) x10^6/uL Hgb 12.2 (12.0-16.0) g/dL Hct 37.2 (37.0-47.0) % MCV 92.5 (83.0-97.0) fL MCH 30.3 (27.0-32.0) pg MCHC 32.8 (32.0-36.0) g/dL RDW Coeff of Mack 11.8 (11.0-15.0) % Plt Count 226 (150-400) 10^3/uL Immature Gran % (Auto) 0.2 (0.0-4.9) % Neut % (Auto) 62.5 (41-71) % Lymph % (Auto) 29.0 (24-44) % [place] % (Auto) 8.1 (0-10) % Eos % (Auto) 0.0 (0-6) % Baso % (Auto) 0.2 (0-1) % Neut # (Auto) 2.95 (1.80-8.00) x10^3/uL Lymph # (Auto) 1.37 (0.60-5.00) 10^3/uL [place] # (Auto) 0.38 (0.00-1.50) 10^3/uL Eos # (Auto) 0.00 (0.00-1.50) 10^3/uL Baso # (Auto) 0.01 (0.00-0.50) 10^3/uL Immature Gran # (Auto) 0.01 (0.00-0.49) 10^3/uL Sodium 140 (136-145) mEq/L Potassium 4.2 (3.5-5.0) mEq/L Chloride 106 (98-106) mEq/L Carbon Dioxide 30 (21-32) mmol/L BUN 14 (7-18) mg/dL Creatinine 0.9 (0.6-1.0) mg/dL Est Cr Clr Drug Dosing 44.03 mL/min Estimated GFR (MDRD) > 60 (>=60) mL/min Glucose 166 H (75-99) mg/dL Calcium 8.0 L (8.4-10.1) mg/dL Total Bilirubin 0.2 (0.0-1.0) mg/dL Direct Bilirubin 0.1 (0.0-0.3) mg/dL AST 25 (15-37) U/L ALT 29 (12-78) U/L Alkaline Phosphatase 60 (46-116) U/L Creatine Kinase 419 H (21-215) U/L C-Reactive Protein 2.8 H (0.2-0.8) mg/dL Total Protein 6.3 L (6.4-8.2) g/dL Albumin 2.6 L (3.4-5.0) g/dL Result Diagrams: 03/26/21 06:55 03/26/21 06:55 Jhoan Results Last 24 hrs: Microbiology 03/25/21 11:30 Urine Culture - Preliminary Urine, Voided NO GROWTH AFTER 1 DAY 03/24/21 21:20 Aerobic Blood Culture - Preliminary Blood - Venous - Lab Draw NO GROWTH AFTER 1 DAY Anaerobic Blood Culture - Preliminary NO GROWTH AFTER 1 DAY 03/24/21 21:15 Aerobic Blood Culture - Preliminary Blood - Venous NO GROWTH AFTER 1 DAY Anaerobic Blood Culture - Preliminary NO GROWTH AFTER 1 DAY Sepsis Event Note - Evaluation Sepsis Screening Result: No Definite Risk - Focused Exam Vital Signs: Vital Signs Temp Pulse Resp BP Pulse Ox 03/26/21 08:00 97.8 F 75 20 125/58 L 94 L 03/26/21 04:00 98.7 F 65 20 128/64 93 L 03/26/21 00:00 98.1 F 73 20 132/65 94 L - Problem List & Annotations (1) COVID-19 SNOMED Code(s): 222082404 Code(s): U07.1 - COVID-19 Status: Acute Current Visit: No (2) Hypoxia SNOMED Code(s): 635951219 Code(s): R09.02 - HYPOXEMIA Status: Acute Current Visit: No - Problem List Review Problem List Initiated/Reviewed/Updated: Yes - My Orders Last 24 Hours: My Active Orders 03/25/21 11:30 CULTURE URINE [RM] Routine 03/25/21 18:00 Remdesivir 100 mg Sodium Chloride 0.9% [Normal Saline AdvBag] 100 ml IV Q24H 03/25/21 20:00 Simvastatin [Zocor] 40 mg PO BEDTIME dexAMETHasone [Decadron] 6 mg IVPUSH BEDTIME lisinopriL [Prinivil] 10 mg PO BEDTIME 03/26/21 20:00 cefTRIAXone [Rocephin] 1 gm IVPUSH Q24H 03/27/21 05:11 C-REACTIVE PROTEIN [CHEM] AM CBC WITH AUTO DIFF [HEME] AM CREATINE KINASE,CK [CHEM] AM 03/27/21 22:34 BILIRUBIN DIRECT [CHEM] DAILY COMPREHENSIVE METABOLIC PN,CMP [CHEM] DAILY 03/28/21 22:34 BILIRUBIN DIRECT [CHEM] DAILY COMPREHENSIVE METABOLIC PN,CMP [CHEM] DAILY - Plan Plan:: 03/25/2021 Patient overall had an uneventful night. Vital signs show her to be afebrile this morning. Laboratory work was stable this morning as well. Will continue to closely monitor. Will start promethazine with codeine for her cough as well. Will d/c IV fluids today. 03/26/2021 Patient is showing improvement each day. Will continue with Remdesivir and Dexamamethasone at this time. Patient has been up walking and feeling a lot better than on admit. Labs today are unremarkable showing gradual improvement as well. Urine culture is still pending.
[2021-03-26] MEDS: REMDESIVIR 100 MG in Sodium Chloride 0.9% 100 ML IV SCH (17:24)
[2021-03-26] MEDS ORDERED: cefTRIAXone 1 GM Vial IVPUSH SCH (20:00)
[2021-03-26] MEDS: Dexamethasone 4 MG/ML SDV IVPUSH SCH (20:50)
[2021-03-26] MEDS: Pantoprazole 40 MG Vial IVPUSH SCH (21:00)
[2021-03-26] MEDS: Acetaminophen 325 MG Tab PO PRN (21:00)
[2021-03-26] MEDS: Simvastatin 40 MG Tab PO SCH (21:13)
[2021-03-26] MEDS: Lisinopril 10 MG Tab PO SCH (21:13)
[2021-03-27] MEDS: Enoxaparin 40 MG/0.4 ML Syringe SUBCUT SCH ×2 (08:11→20:19)
[2021-03-27 09:42] LABS: CHLORIDE,CL 106 mEq/L (98-106); SODIUM,NA 141 mEq/L (136-145)
--- NOTE | 2021-03-27 18:18 | PCM.PN ---
- General Info Date of Service: 03/27/21 Admission Dx/Problem (Free Text): COVID 19 Hypoxia Subjective Update: Veronica is a 75 yo female who was admitted to the hospital last night d/t hypoxia secondary to COVID. Patient was on day 9 or 10 yesterday since symptom onset. She states she is gradually feeling better. Doesn't feel as if she has a fever this morning. States once she was able to get comfortable last night she slept well. Admits continues to not have much of an appetite. Denies any new onset of symptoms. 03/26/2021 Veronica states this morning she continues to improve. State she continues to have a horrible cough, which is worse in the morning. She denies feeling short of breath as prior. States her appetite is much better and eating more than she should be. States she started drinking a lot of water as well. Denies any new onset of symptoms. 03/27/2021 Patient continues to show significant improvement. States she is at least 75% better since admit. Continues to have a cough but feels it is a lot better, especially with cough medication. Has been up walking the [place] which continues to get easier. Denies any new symptoms. - Review of Systems General: Reports: Weakness. Denies: Fever HEENT: Reports: No Symptoms Pulmonary: Reports: Shortness of Breath Cardiovascular: Reports: Dyspnea on Exertion. Denies: Chest Pain, Lightheadedness Gastrointestinal: Reports: No Symptoms. Denies: Decreased Appetite, Diarrhea, Nausea, Vomiting Genitourinary: Reports: Incontinence Musculoskeletal: Reports: No Symptoms Skin: Reports: No Symptoms Neurological: Reports: No Symptoms Psychiatric: Reports: No Symptoms - Patient Data Vitals - Most Recent: Last Vital Signs Temp 98.6 F 03/27/21 16:00 Pulse 72 03/27/21 16:00 Resp 20 03/27/21 16:00 BP 152/66 H 03/27/21 16:00 Pulse Ox 91 L 03/27/21 16:00 Weight - Most Recent: 209 lb 4.8 oz Lab Results Last 24 Hours: Laboratory Results - last 24 hr 03/27/21 03/27/21 03/27/21 Range/Units 07:10 07:15 07:15 WBC 5.7 (4.0-11.0) 10^3/uL RBC 4.02 (4.00-5.50) x10^6/uL Hgb 12.1 (12.0-16.0) g/dL Hct 37.4 (37.0-47.0) % MCV 93.0 (83.0-97.0) fL MCH 30.1 (27.0-32.0) pg MCHC 32.4 (32.0-36.0) g/dL RDW Coeff of Mack 11.9 (11.0-15.0) % Plt Count 248 (150-400) 10^3/uL Immature Gran % (Auto) 0.7 (0.0-4.9) % Neut % (Auto) 67.1 (41-71) % Lymph % (Auto) 26.2 (24-44) % [place] % (Auto) 5.8 (0-10) % Eos % (Auto) 0.0 (0-6) % Baso % (Auto) 0.2 (0-1) % Neut # (Auto) 3.84 (1.80-8.00) x10^3/uL Lymph # (Auto) 1.50 (0.60-5.00) 10^3/uL [place] # (Auto) 0.33 (0.00-1.50) 10^3/uL Eos # (Auto) 0.00 (0.00-1.50) 10^3/uL Baso # (Auto) 0.01 (0.00-0.50) 10^3/uL Immature Gran # (Auto) 0.04 (0.00-0.49) 10^3/uL Sodium 141 (136-145) mEq/L Potassium 4.9 (3.5-5.0) mEq/L Chloride 106 (98-106) mEq/L Carbon Dioxide 28 (21-32) mmol/L BUN 20 H (7-18) mg/dL Creatinine 0.9 (0.6-1.0) mg/dL Est Cr Clr Drug Dosing 44.03 mL/min Estimated GFR (MDRD) > 60 (>=60) mL/min Glucose 161 H (75-99) mg/dL Calcium 8.2 L (8.4-10.1) mg/dL Total Bilirubin 0.2 (0.0-1.0) mg/dL Direct Bilirubin 0.1 (0.0-0.3) mg/dL AST 28 (15-37) U/L ALT 33 (12-78) U/L Alkaline Phosphatase 54 (46-116) U/L Creatine Kinase 247 H (21-215) U/L C-Reactive Protein 1.2 H (0.2-0.8) mg/dL Total Protein 6.0 L (6.4-8.2) g/dL Albumin 2.6 L (3.4-5.0) g/dL Jhoan Results Last 24 Hours: Microbiology 03/25/21 11:30 Urine Culture - Final Urine, Voided NO GROWTH AFTER 2 DAYS 03/24/21 21:20 Aerobic Blood Culture - Preliminary Blood - Venous - Lab Draw NO GROWTH AFTER 2 DAYS Anaerobic Blood Culture - Preliminary NO GROWTH AFTER 2 DAYS 03/24/21 21:15 Aerobic Blood Culture - Preliminary Blood - Venous NO GROWTH AFTER 2 DAYS Anaerobic Blood Culture - Preliminary NO GROWTH AFTER 2 DAYS Med Orders - Current: Current Medications Acetaminophen (Acetaminophen 325 Mg Tab) 650 mg PO Q4H PRN PRN Reason: Pain (Mild 1-3)/fever Last Admin: 03/26/21 21:00 Dose: 650 mg Documented by: Dexamethasone (Dexamethasone 4 Mg/Ml Sdv) 6 mg IVPUSH BEDTIME TIM Stop: 04/02/21 20:01 Last Admin: 03/26/21 20:50 Dose: 6 mg Documented by: Enoxaparin Sodium (Enoxaparin 40 Mg/0.4 Ml Syringe) 40 mg SUBCUT BID [facility] Last Admin: 03/27/21 08:11 Dose: 40 mg Documented by: Remdesivir 100 mg/ Sodium (Chloride) 100 mls @ 100 mls/hr IV Q24H TIM Stop: 03/28/21 18:59 Last Admin: 03/26/21 17:24 Dose: 100 mls/hr Documented by: Lisinopril (Lisinopril 10 Mg Tab) 10 mg PO BEDTIME [facility] Last Admin: 03/26/21 21:13 Dose: 10 mg Documented by: Pantoprazole Sodium (Pantoprazole 40 Mg Vial) 40 mg IVPUSH BEDTIME [facility] Last Admin: 03/26/21 21:00 Dose: 40 mg Documented by: Promethazine HCl/Codeine (Codeine/Promethazine 10-6.25 Mg/5 Ml Syrup 5 Ml Ud Cup) 10 ml PO Q6H PRN PRN Reason: Cough Last Admin: 03/26/21 21:00 Dose: 10 ml Documented by: Simvastatin (Simvastatin 40 Mg Tab) 40 mg PO BEDTIME [facility] Last Admin: 03/26/21 21:13 Dose: 40 mg Documented by: Discontinued Medications Acetaminophen (Acetaminophen 325 Mg Tab) 650 mg PO NOW ONE Stop: 03/24/21 20:53 Last Admin: 03/24/21 21:00 Dose: 650 mg Documented by: Acetaminophen (Acetaminophen 325 Mg Tab) 325 mg PO NOW ONE Stop: 03/24/21 21:02 Last Admin: 03/24/21 21:01 Dose: 325 mg Documented by: Acetaminophen (Acetaminophen 325 Mg Tab) 650 mg PO Q4H PRN PRN Reason: Fever Greater Than 101 Ceftriaxone Sodium (Ceftriaxone 1 Gm Vial) 1 gm IVPUSH Q24H [facility] Last Admin: 03/25/21 23:00 Dose: 1 gm Documented by: Ceftriaxone Sodium (Ceftriaxone 1 Gm Vial) 1 gm IVPUSH Q24H [facility] Last Admin: 03/26/21 20:55 Dose: 1 gm Documented by: Dexamethasone (Dexamethasone 4 Mg/Ml Sdv) 6 mg IVPUSH DAILY [facility] Stop: 04/02/21 08:01 Last Admin: 03/25/21 10:50 Dose: Not Given Documented by: Dexamethasone (Dexamethasone 4 Mg/Ml Sdv) Confirm Administered Dose 4 mg .ROUTE .STK-MED ONE Stop: 03/25/21 08:09 Last Admin: 03/25/21 09:12 Dose: Not Given Documented by: Sodium Chloride (Normal Saline) 1,000 mls @ 100 mls/hr IV ASDIRECTED [facility] Last Admin: 03/24/21 23:01 Dose: 100 mls/hr Documented by: Remdesivir 200 mg/ Sodium (Chloride) 250 mls @ 250 mls/hr IV ONETIME ONE Stop: 03/24/21 22:35 Last Admin: 03/24/21 22:59 Dose: 250 mls/hr Documented by: - Exam General: Alert, Oriented, Cooperative, No Acute Distress Lungs: Decreased Breath Sounds, Crackles Cardiovascular: Regular Rate, Regular Rhythm, No Murmurs GI/Abdominal Exam: Normal Bowel Sounds, Soft, Non-Tender, No Distention Extremities: Normal Inspection, Pedal Edema (trace bilateral) Skin: Warm, Dry, Intact Neurological: No New Focal Deficit Psy/Mental Status: Alert, Normal Affect, Normal Mood - Patient Data Lab Results Last 24 hrs: Laboratory Results - last 24 hr 03/27/21 03/27/21 03/27/21 Range/Units 07:10 07:15 07:15 WBC 5.7 (4.0-11.0) 10^3/uL RBC 4.02 (4.00-5.50) x10^6/uL Hgb 12.1 (12.0-16.0) g/dL Hct 37.4 (37.0-47.0) % MCV 93.0 (83.0-97.0) fL MCH 30.1 (27.0-32.0) pg MCHC 32.4 (32.0-36.0) g/dL RDW Coeff of Mack 11.9 (11.0-15.0) % Plt Count 248 (150-400) 10^3/uL Immature Gran % (Auto) 0.7 (0.0-4.9) % Neut % (Auto) 67.1 (41-71) % Lymph % (Auto) 26.2 (24-44) % [place] % (Auto) 5.8 (0-10) % Eos % (Auto) 0.0 (0-6) % Baso % (Auto) 0.2 (0-1) % Neut # (Auto) 3.84 (1.80-8.00) x10^3/uL Lymph # (Auto) 1.50 (0.60-5.00) 10^3/uL [place] # (Auto) 0.33 (0.00-1.50) 10^3/uL Eos # (Auto) 0.00 (0.00-1.50) 10^3/uL Baso # (Auto) 0.01 (0.00-0.50) 10^3/uL Immature Gran # (Auto) 0.04 (0.00-0.49) 10^3/uL Sodium 141 (136-145) mEq/L Potassium 4.9 (3.5-5.0) mEq/L Chloride 106 (98-106) mEq/L Carbon Dioxide 28 (21-32) mmol/L BUN 20 H (7-18) mg/dL Creatinine 0.9 (0.6-1.0) mg/dL Est Cr Clr Drug Dosing 44.03 mL/min Estimated GFR (MDRD) > 60 (>=60) mL/min Glucose 161 H (75-99) mg/dL Calcium 8.2 L (8.4-10.1) mg/dL Total Bilirubin 0.2 (0.0-1.0) mg/dL Direct Bilirubin 0.1 (0.0-0.3) mg/dL AST 28 (15-37) U/L ALT 33 (12-78) U/L Alkaline Phosphatase 54 (46-116) U/L Creatine Kinase 247 H (21-215) U/L C-Reactive Protein 1.2 H (0.2-0.8) mg/dL Total Protein 6.0 L (6.4-8.2) g/dL Albumin 2.6 L (3.4-5.0) g/dL Result Diagrams: 03/27/21 07:15 03/27/21 07:10 Jhoan Results Last 24 hrs: Microbiology 03/25/21 11:30 Urine Culture - Final Urine, Voided NO GROWTH AFTER 2 DAYS 03/24/21 21:20 Aerobic Blood Culture - Preliminary Blood - Venous - Lab Draw NO GROWTH AFTER 2 DAYS Anaerobic Blood Culture - Preliminary NO GROWTH AFTER 2 DAYS 03/24/21 21:15 Aerobic Blood Culture - Preliminary Blood - Venous NO GROWTH AFTER 2 DAYS Anaerobic Blood Culture - Preliminary NO GROWTH AFTER 2 DAYS Sepsis Event Note - Evaluation Sepsis Screening Result: No Definite Risk - Focused Exam Vital Signs: Vital Signs Temp Pulse Resp BP Pulse Ox 03/27/21 16:00 98.6 F 72 20 152/66 H 91 L 03/27/21 12:00 97.4 F 80 20 152/74 H 93 L 03/27/21 08:00 98.5 F 78 20 99/68 93 L - Problem List & Annotations (1) COVID-19 SNOMED Code(s): 180925044 Code(s): U07.1 - COVID-19 Status: Acute Current Visit: No (2) Hypoxia SNOMED Code(s): 064091298 Code(s): R09.02 - HYPOXEMIA Status: Acute Current Visit: No - Problem List Review Problem List Initiated/Reviewed/Updated: Yes - My Orders Last 24 Hours: My Active Orders 03/28/21 05:11 CBC WITH AUTO DIFF [HEME] AM 03/28/21 22:34 BILIRUBIN DIRECT [CHEM] DAILY COMPREHENSIVE METABOLIC PN,CMP [CHEM] DAILY - Plan Plan:: 03/25/2021 Patient overall had an uneventful night. Vital signs show her to be afebrile this morning. Laboratory work was stable this morning as well. Will continue to closely monitor. Will start promethazine with codeine for her cough as well. Will d/c IV fluids today. 03/26/2021 Patient is showing improvement each day. Will continue with Remdesivir and Dexamamethasone at this time. Patient has been up walking and feeling a lot b ashley than on admit. Labs today are unremarkable showing gradual improvement as well. Urine culture is still pending. 03/27/2021 Patient overall looks to be doing better. Continues to be on oxygen per [place] at 2lpm. Patient feels she may be ready to go home tomorrow. Will repeat labs and if no significant findings I did agree with Veronica she may go home with oxygen. Will reassess in the am. Last dose of Remdesivir tomorrow morning. Urine culture negative. Discontinued IV antibiotics.
[2021-03-27] MEDS: REMDESIVIR 100 MG in Sodium Chloride 0.9% 100 ML IV SCH (18:29)
[2021-03-27] MEDS: Lisinopril 10 MG Tab PO SCH (20:19)
[2021-03-27] MEDS: Simvastatin 40 MG Tab PO SCH (20:19)
[2021-03-27] MEDS: Pantoprazole 40 MG Vial IVPUSH SCH (20:19)
[2021-03-27] MEDS: Dexamethasone 4 MG/ML SDV IVPUSH SCH (20:22)
[2021-03-27] MEDS: Codeine/Promethazine 10-6.25 MG/5 ML Syrup 5 ML UD Cup PO PRN (23:49)
[2021-03-28 08:07] LABS: CHLORIDE,CL 109 mEq/L (98-106); SODIUM,NA 145 mEq/L (136-145)
[2021-03-28] MEDS: Enoxaparin 40 MG/0.4 ML Syringe SUBCUT SCH (08:29)
[2021-03-28] MEDS ORDERED: REMDESIVIR 100 MG in Sodium Chloride 0.9% 100 ML IV SCH (11:00)
--- NOTE | 2021-03-28 12:46 | PCM.DCSUM1 ---
Discharge Summary - Hospital Course Free Text/Narrative:: Veronica is a 75 year old female who presented to the ER with concerns of possibly having COVID. Started noting cold symptoms 9 days prior with progression of symptoms. Not eating or drinking well. Noted increasing cough. Nausea/abdominal pain and diarrhea. Fever 102. Covid positive. CRP mildly elevated. Oxygen sat 88% on room air. Admitted and started on IV fluids and Remdesivir. Diagnosis: Stroke: No Modified [place] Scale: No Symptoms at All Modified [place] Scale Score: 0 - Discharge Data Discharge Date: 03/28/21 Discharge Disposition: Home, Self-Care 01 Condition: Good - Referral to Home Health Primary Care Physician: PCP None - Discharge Diagnosis/Problem(s) (1) COVID-19 SNOMED Code(s): 349726342 ICD Code: U07.1 - COVID-19 Status: Acute Priority: High (2) Hypoxia SNOMED Code(s): 650294100 ICD Code: R09.02 - HYPOXEMIA Status: Acute Priority: High - Patient Summary/Data Complications: none Hospital Course: Patient is doing well. Is eating well. Ambulatory. Has persistent cough but has improved. Less shortness of breath. Does still require oxygen. Sats drop to 87% off oxygen with minimal activity. LUng sounds are clear but diminished. Has received 5 days of Remdesivir. No fevers for greater than 24 hours. Will discharge home on oxygen to keep sats greater than 90%. Can wean off oxygen as sats stabilize. Follow up with Brian in 10 days. - Patient Instructions Diet: Usual Diet as Tolerated Activity: As Tolerated - Discharge Plan *PRESCRIPTION DRUG MONITORING PROGRAM REVIEWED*: No *COPY OF PRESCRIPTION DRUG MONITORING REPORT IN PATIENT ANGUS: No Prescriptions/Med Rec: Oxybutynin [Oxybutynin ER] 5 mg PO DAILY #30 tab.er Codeine/Promethazine [Phenergan with Codeine] 10 ml PO Q6H PRN #180 ml PRN Reason: Cough Albuterol [Ventolin HFA] 1 puff INH Q4H #1 gm Home Medications: Home Meds Simvastatin 40 mg PO BEDTIME 03/24/21 [History] lisinopriL [Lisinopril] 10 mg PO BEDTIME 03/24/21 [History] Albuterol [Ventolin HFA] 1 puff INH Q4H #1 gm 03/28/21 [Rx] Codeine/Promethazine [Phenergan with Codeine] 10 ml PO Q6H PRN #180 ml 03/28/21 [Rx] Oxybutynin [Oxybutynin ER] 5 mg PO DAILY #30 tab.er 03/28/21 [Rx] Patient Handouts: COVID-19 Frequently Asked Questions, COVID-19 Forms: ED Department Discharge Referrals: PCP,None [Primary Care Provider] - - Discharge Summary/Plan Comment DC Time >30 min.: No Total # of Minutes for Discharge Time: 20 - General Info Date of Service: 03/28/21 Admission Dx/Problem (Free Text: COVID 19 Hypoxia Functional Status: Reports: Pain Controlled, Tolerating Diet, Ambulating - Review of Systems General: Reports: Weakness, Fatigue, Malaise. Denies: Fever HEENT: Denies: Ear Pain, Sinus Congestion, Rhinitis Pulmonary: Reports: Shortness of Breath, Cough Cardiovascular: Denies: Chest Pain, Edema, Lightheadedness Gastrointestinal: Denies: Abdominal Pain, Nausea, Vomiting Genitourinary: Reports: No Symptoms Musculoskeletal: Reports: No Symptoms Skin: Reports: No Symptoms Neurological: Reports: Weakness - Patient Data Vitals - Most Recent: Last Vital Signs Temp 98.6 F 03/28/21 08:00 Pulse 75 03/28/21 08:00 Resp 20 03/28/21 08:00 BP 133/76 03/28/21 08:00 Pulse Ox 91 L 03/28/21 08:00 Weight - Most Recent: 209 lb 4.8 oz Lab Results - Last 24 hrs: Laboratory Results - last 24 hr 03/28/21 03/28/21 Range/Units 05:11 07:00 WBC 6.2 (4.0-11.0) 10^3/uL RBC 4.06 (4.00-5.50) x10^6/uL Hgb 12.1 (12.0-16.0) g/dL Hct 37.6 (37.0-47.0) % MCV 92.6 (83.0-97.0) fL MCH 29.8 (27.0-32.0) pg MCHC 32.2 (32.0-36.0) g/dL RDW Coeff of Mack 11.8 (11.0-15.0) % Plt Count 258 (150-400) 10^3/uL Immature Gran % (Auto) 1.1 (0.0-4.9) % Neut % (Auto) 65.0 (41-71) % Lymph % (Auto) 27.4 (24-44) % [place] % (Auto) 6.3 (0-10) % Eos % (Auto) 0.0 (0-6) % Baso % (Auto) 0.2 (0-1) % Neut # (Auto) 4.03 (1.80-8.00) x10^3/uL Lymph # (Auto) 1.70 (0.60-5.00) 10^3/uL [place] # (Auto) 0.39 (0.00-1.50) 10^3/uL Eos # (Auto) 0.00 (0.00-1.50) 10^3/uL Baso # (Auto) 0.01 (0.00-0.50) 10^3/uL Immature Gran # (Auto) 0.07 (0.00-0.49) 10^3/uL Sodium 145 (136-145) mEq/L Potassium 4.6 (3.5-5.0) mEq/L Chloride 109 H (98-106) mEq/L Carbon Dioxide 28 (21-32) mmol/L BUN 15 (7-18) mg/dL Creatinine 0.9 (0.6-1.0) mg/dL Est Cr Clr Drug Dosing 44.03 mL/min Estimated GFR (MDRD) > 60 (>=60) mL/min Glucose 160 H (75-99) mg/dL Calcium 7.9 L (8.4-10.1) mg/dL Total Bilirubin 0.2 (0.0-1.0) mg/dL Direct Bilirubin 0.1 (0.0-0.3) mg/dL AST 26 (15-37) U/L ALT 39 (12-78) U/L Alkaline Phosphatase 54 (46-116) U/L Total Protein 5.9 L (6.4-8.2) g/dL Albumin 2.5 L (3.4-5.0) g/dL [place] Results - Last 24 hrs: Microbiology 03/24/21 21:20 Aerobic Blood Culture - Preliminary Blood - Venous - Lab Draw NO GROWTH AFTER 3 DAYS Anaerobic Blood Culture - Preliminary NO GROWTH AFTER 3 DAYS 03/24/21 21:15 Aerobic Blood Culture - Preliminary Blood - Venous NO GROWTH AFTER 3 DAYS Anaerobic Blood Culture - Preliminary NO GROWTH AFTER 3 DAYS 03/25/21 11:30 Urine Culture - Final Urine, Voided NO GROWTH AFTER 2 DAYS Med Orders - Current: Current Medications Acetaminophen (Acetaminophen 325 Mg Tab) 650 mg PO Q4H PRN PRN Reason: Pain (Mild 1-3)/fever Last Admin: 03/26/21 21:00 Dose: 650 mg Documented by: Dexamethasone (Dexamethasone 4 Mg/Ml Sdv) 6 mg IVPUSH BEDTIME [facility] Stop: 04/02/21 20:01 Last Admin: 03/27/21 20:22 Dose: 6 mg Documented by: Enoxaparin Sodium (Enoxaparin 40 Mg/0.4 Ml Syringe) 40 mg SUBCUT BID [facility] Last Admin: 03/28/21 08:29 Dose: 40 mg Documented by: Lisinopril (Lisinopril 10 Mg Tab) 10 mg PO BEDTIME [facility] Last Admin: 03/27/21 20:19 Dose: 10 mg Documented by: Pantoprazole Sodium (Pantoprazole 40 Mg Vial) 40 mg IVPUSH BEDTIME [facility] Last Admin: 03/27/21 20:19 Dose: 40 mg Documented by: Promethazine HCl/Codeine (Codeine/Promethazine 10-6.25 Mg/5 Ml Syrup 5 Ml Ud Cup) 10 ml PO Q6H PRN PRN Reason: Cough Last Admin: 03/27/21 23:49 Dose: 10 ml Documented by: Simvastatin (Simvastatin 40 Mg Tab) 40 mg PO BEDTIME [facility] Last Admin: 03/27/21 20:19 Dose: 40 mg Documented by: Discontinued Medications Acetaminophen (Acetaminophen 325 Mg Tab) 650 mg PO NOW ONE Stop: 03/24/21 20:53 Last Admin: 03/24/21 21:00 Dose: 650 mg Documented by: Acetaminophen (Acetaminophen 325 Mg Tab) 325 mg PO NOW ONE Stop: 03/24/21 21:02 Last Admin: 03/24/21 21:01 Dose: 325 mg Documented by: Acetaminophen (Acetaminophen 325 Mg Tab) 650 mg PO Q4H PRN PRN Reason: Fever Greater Than 101 Ceftriaxone Sodium (Ceftriaxone 1 Gm Vial) 1 gm IVPUSH Q24H [facility] Last Admin: 03/25/21 23:00 Dose: 1 gm Documented by: Ceftriaxone Sodium (Ceftriaxone 1 Gm Vial) 1 gm IVPUSH Q24H [facility] Last Admin: 03/26/21 20:55 Dose: 1 gm Documented by: Dexamethasone (Dexamethasone 4 Mg/Ml Sdv) 6 mg IVPUSH DAILY [facility] Stop: 04/02/21 08:01 Last Admin: 03/25/21 10:50 Dose: Not Given Documented by: Dexamethasone (Dexamethasone 4 Mg/Ml Sdv) Confirm Administered Dose 4 mg .ROUTE .STK-MED ONE Stop: 03/25/21 08:09 Last Admin: 03/25/21 09:12 Dose: Not Given Documented by: Sodium Chloride (Normal Saline) 1,000 mls @ 100 mls/hr IV ASDIRECTED [facility] Last Admin: 03/24/21 23:01 Dose: 100 mls/hr Documented by: Remdesivir 200 mg/ Sodium (Chloride) 250 mls @ 250 mls/hr IV ONETIME ONE Stop: 03/24/21 22:35 Last Admin: 03/24/21 22:59 Dose: 250 mls/hr Documented by: Remdesivir 100 mg/ Sodium (Chloride) 100 mls @ 100 mls/hr IV Q24H [facility] Stop: 03/28/21 18:59 Last Admin: 03/27/21 18:29 Dose: 100 mls/hr Documented by: Remdesivir 100 mg/ Sodium (Chloride) 100 mls @ 100 mls/hr IV Q24H [facility] Stop: 03/28/21 11:59 Last Admin: 03/28/21 10:27 Dose: 100 mls/hr Documented by: - Exam General: Reports: Alert, Oriented HEENT: Reports: Mucous Membr. Moist/Ona Neck: Reports: Supple Lungs: Reports: Clear to Auscultation, Normal Respiratory Effort Cardiovascular: Reports: Regular Rate, Regular Rhythm GI/Abdominal Exam: Normal Bowel Sounds, Soft, Non-Tender Extremities: Normal Inspection, No Pedal Edema Skin: Reports: Warm, Dry Neurological: Reports: No New Focal Deficit
== END 2021-03-28 12:25 | disposition home or self-care (01) | DRG 177 ==
LOC: CC.ED 20:30 → CC.MS 21:51 → UNDOADMIN 22:28
PROVIDERS: ADMIT Physician Assistant Medical; ATTEND Family Medicine
PROC: 8E0ZXY6 Isolation (ICD-10-PCS; principal; 2021-03-24)
PROC: XW033E5 Introduction of Remdesivir Anti-infective into Peripheral Vein, Percutaneous Approach, New Technology Group 5 (ICD-10-PCS; 2021-03-24)
PROC: 3E0333Z Introduction of Anti-inflammatory into Peripheral Vein, Percutaneous Approach (ICD-10-PCS; 2021-03-25)
DX: U07.1 COVID-19 (principal); J12.82 Pneumonia due to coronavirus disease 2019; E78.00 Pure hypercholesterolemia, unspecified; I10 Essential (primary) hypertension; J67.0 Farmer's lung; R73.03 Prediabetes; R09.02 Hypoxemia; Z90.49 Acquired absence of other specified parts of digestive tract; Z79.899 Other long term (current) drug therapy
CPT/HCPCS: 36415; 71045; 80053; 81001; 82248; 82550; 83605; 83615; 84484; 85025; 85379; 85610; 86140; 87040; 87086; 99285-25; A9270-GY; C9113; J0696; J1100; J1650; J7030; J7050; U0002

== ENCOUNTER → 2022-10-15 | Day surgery (SDC) | payer MEDICARE, BC ==
[~2022-10-15] MED LIST: Ketamine 200 MG/20 ML MDV ONE; Lactated Ringers 1,000 ML IV SCH; Propofol 200 MG/20 ML SDV ONE; fentaNYL 50 MCG/ML SDV ONE
== END ==
LOC: CC.SDS 09:28
PROVIDERS: ATTEND Family Medicine
DX: Z12.11 Encounter for screening for malignant neoplasm of colon (principal); K57.30 Diverticulosis of large intestine without perforation or abscess without bleeding; D12.5 Benign neoplasm of sigmoid colon; K21.9 Gastro-esophageal reflux disease without esophagitis; E78.5 Hyperlipidemia, unspecified; I10 Essential (primary) hypertension; R73.03 Prediabetes; R91.1 Solitary pulmonary nodule; E28.39 Other primary ovarian failure; R79.89 Other specified abnormal findings of blood chemistry; E66.9 Obesity, unspecified; G47.33 Obstructive sleep apnea (adult) (pediatric); Z68.39 Body mass index [BMI] 39.0-39.9, adult; Z90.49 Acquired absence of other specified parts of digestive tract; Z98.51 Tubal ligation status; Z79.899 Other long term (current) drug therapy
CPT/HCPCS: 00811; 88305; J2704; J3010; J3490; J7120